=== PATIENT | male | born 2000 | race Two or more races ===

== ENCOUNTER 2020-03-25 01:33 | Emergency (ER) | payer BC ==
[~2020-03-25] VITALS: Ht 175.3 cm; Wt 64.8 kg
[2020-03-25 01:39] VITALS: BP 134/87
== END 2020-03-25 03:56 | disposition home or self-care (01) ==
LOC: ED 03:15
DX: S02.2XXA Fracture of nasal bones, initial encounter for closed fracture (principal); W01.0XXA Fall on same level from slipping, tripping and stumbling without subsequent striking against object, initial encounter; Y93.89 Activity, other specified; Y92.098 Other place in other non-institutional residence as the place of occurrence of the external cause; Y99.8 Other external cause status
CPT/HCPCS: 21315; 21320; 70160; 99284